=== PATIENT | male | born 1945 | race Caucasian/White ===

== ENCOUNTER → 2022-10-07 12:07 | Outpatient (BNVA) | payer MEDICARE, OTHER, SELFPAY | PROVIDERS: Visit Provider Emergency Medicine | DX: R50.9 Fever, unspecified (principal); J10.1 Influenza due to other identified influenza virus with other respiratory manifestations; Z20.818 Contact with and (suspected) exposure to other bacterial communicable diseases | CPT/HCPCS: 87400 ==